=== PATIENT | male | born 1995 | race African-American/Black ===

== ENCOUNTER 2023-12-28 02:44 | Emergency (ER) | payer OTHER ==
[~2023-12-28] VITALS: Ht 193 cm; Wt 97.7 kg
[2023-12-28 02:53] VITALS: BP 110/63; PULSE 42; RESP 16; TEMP 97.8
[2023-12-28] MEDS ORDERED: IBUP-1492 PO (03:36)
[2023-12-28] MEDS: KETOROLAC TROMETHAMINE 30 MG/ML VIAL IM ONE (03:54)
== END 2023-12-28 04:15 | disposition home or self-care (01) ==
LOC: EMS 02:47
DX: M54.32 Sciatica, left side (principal); M54.31 Sciatica, right side; F17.210 Nicotine dependence, cigarettes, uncomplicated; F12.90 Cannabis use, unspecified, uncomplicated
CPT/HCPCS: 99283; 96372; J1885

== ENCOUNTER → 2024-01-02 | Emergency (ER) | payer OTHER ==
[~2024-01-02] MED LIST: IBUP-1492 PO
== END | disposition left against medical advice (07) ==
LOC: EMS 17:08
DX: Z53.21 Procedure and treatment not carried out due to patient leaving prior to being seen by health care provider (principal)